=== PATIENT | female | born 1990 | race African-American/Black ===

== ENCOUNTER 2018-07-04 14:24 | Emergency (ER) | payer MEDICAID, OTHER ==
[~2018-07-04] VITALS: Ht 170.2 cm; Wt 63.5 kg
--- NOTE | 2018-07-04 14:39 | NUR ---
PATIENT IS AWAKE AND ALERT. SHE ATE FOOD JUST NOW AND STATES SHE WANTS TO LEAVE BECAUSE SHE WILL MISS HER BUS. SHE IS REFUSING ALL BLOOD DRAWS AND TESTS. DC AND FOLLOW UP INSTRUCTIONS GIVEN AND EXPLAIND TO PATIENT WHO STATES SHE UNDERSTANDS ALL INSTRUCTIONS. PATIENT STATES SHE DOES NOT DRIVE
== END 2018-07-04 15:00 | disposition home or self-care (01) ==
LOC: ER 14:24
DX: R41.82 Altered mental status, unspecified (principal); F10.129 Alcohol abuse with intoxication, unspecified; F17.200 Nicotine dependence, unspecified, uncomplicated; Y90.9 Presence of alcohol in blood, level not specified
CPT/HCPCS: A4663